=== PATIENT | female | born 2000 | race Caucasian/White ===

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

== ENCOUNTER 2024-11-12 08:10 | Outpatient (CLI) | payer OTHER | END 2024-11-12 08:11 | disposition home or self-care (01) | LOC: BICRAD 08:10 | PROVIDERS: ATTEND Family Medicine | DX: M54.50 Low back pain, unspecified (principal) | CPT/HCPCS: 72100 ==